=== PATIENT | female | born 1995 | race Caucasian/White ===

== ENCOUNTER 2018-06-21 00:20 | Emergency (ER) | payer BC ==
[~2018-06-21] VITALS: Ht 167.6 cm; Wt 63.6 kg
[2018-06-21 00:26] VITALS: BP 132/79; TEMP 98.1
[2018-06-21 02:49] VITALS: PULSE 88
== END 2018-06-21 03:32 | disposition home or self-care (01) ==
LOC: COL.ER 00:20
DX: S81.811A Laceration without foreign body, right lower leg, initial encounter (principal); Z23 Encounter for immunization; Z90.89 Acquired absence of other organs; Z88.0 Allergy status to penicillin; Z88.1 Allergy status to other antibiotic agents; W22.8XXA Striking against or struck by other objects, initial encounter

== ENCOUNTER 2018-07-03 11:48 | Emergency (ER) | payer BC ==
[2018-07-03 11:51] VITALS: BP 115/68; PULSE 69; TEMP 98
== END 2018-07-03 12:02 | disposition home or self-care (01) ==
LOC: COL.ER 11:48
DX: S81.811D Laceration without foreign body, right lower leg, subsequent encounter (principal)